=== PATIENT | female | born 1945 | race Two or more races ===

== ENCOUNTER 2021-10-23 14:18 | Emergency (ER) | payer OTHER ==
[~2021-10-23] VITALS: Ht 162.6 cm; Wt 56.7 kg
[~2021-10-23 14:18] MED LIST: ATIVAN0.5 MG; CLONAZEPAM0.125 MG/T; CYANOCOBALAMIN5 GM; DICLOFENAC POTA50 MG PO; INTESTINEX680 MG PO; NUVESSA5 GM; PNEU16DI2; PREDNISONE 5 MG; PREGNENOLONE1 GM; PROTONIX40 MG; SINVASTATIN 20MG; SYNTHROID125 MCG; SYNTHROID50 MCG; ZANTAC300 MG PO; ZITHROMAX200 MG PO
[2021-10-23] MEDS ORDERED: SYNTHROID112 MCG PO (14:39)
[2021-10-23] MEDS ORDERED: SIMVASTATIN5 MG (14:40)
[2021-10-23] MEDS ORDERED: RAYOS5 MG PO (14:40)
[2021-10-23] MEDS ORDERED: ORENCIA 250 MG250 MG IV (14:44)
== END 2021-10-23 20:22 | disposition home or self-care (01) ==
LOC: ER 14:18
DX: M54.89 Other dorsalgia (principal); R06.02 Shortness of breath

== ENCOUNTER 2022-05-23 06:16 | Day surgery (SDC) | payer OTHER ==
[~2022-05-23 06:16] MED LIST changes: +ORENCIA 250 MG250 MG IV; +RAYOS5 MG PO; +SIMVASTATIN5 MG; +SYNTHROID112 MCG PO
== END 2022-05-23 10:30 | disposition home or self-care (01) ==
LOC: AMB-ENDOS 06:16
PROVIDERS: ATTEND Surgery
DX: D12.5 Benign neoplasm of sigmoid colon (principal); Z20.822 Contact with and (suspected) exposure to COVID-19; K64.8 Other hemorrhoids; M06.8A Other specified rheumatoid arthritis, other specified site; E03.9 Hypothyroidism, unspecified

== ENCOUNTER 2023-07-02 11:07 | Outpatient (CLI) | payer OTHER | END 2023-07-02 11:15 | disposition home or self-care (01) | LOC: NUCLEAR 11:07 | PROVIDERS: ATTEND Internal Medicine | DX: I87.2 Venous insufficiency (chronic) (peripheral) (principal); I73.9 Peripheral vascular disease, unspecified ==

== ENCOUNTER → 2023-07-08 | Outpatient (CLI) | payer OTHER | END | disposition home or self-care (01) | LOC: NUCLEAR 08:00 | PROVIDERS: ATTEND Internal Medicine | DX: R07.9 Chest pain, unspecified (principal); Q21.10 Atrial septal defect, unspecified; E78.2 Mixed hyperlipidemia ==

== ENCOUNTER 2024-05-30 17:00 | Emergency (ER) | payer OTHER ==
[~2024-05-30] VITALS: Ht 162.6 cm; Wt 56.2 kg
[2024-05-30] MEDS ORDERED: NEURONTIN600 M1 (17:14)
[2024-05-30] MEDS ORDERED: KETOROLAC TROMETHAMINE 30 MG VIAL ONE (18:39)
[2024-05-30] MEDS ORDERED: ORPHENADRINE CITRATE 30 MG/ML AMPUL ONE (18:40)
[2024-05-30] MEDS ORDERED: ORPHENADRINE CITRATE 30 MG/ML AMPUL IM ONE (18:45)
[2024-05-30] MEDS ORDERED: KETOROLAC TROMETHAMINE 15 MG VIAL IM ONE (18:45)
[2024-05-30] MEDS ORDERED: ZANAFLEX4 MG PO (21:31)
[2024-05-30] MEDS ORDERED: TRAMADOL HCL 50 MG TABLET PO ONE (21:45)
== END 2024-05-30 21:53 ==
LOC: ER 17:01
DX: M46.1 Sacroiliitis, not elsewhere classified (principal); M51.36 Other intervertebral disc degeneration, lumbar region; M85.88 Other specified disorders of bone density and structure, other site; Z91.040 Latex allergy status; Z88.2 Allergy status to sulfonamides; Z85.038 Personal history of other malignant neoplasm of large intestine; E03.9 Hypothyroidism, unspecified
CPT/HCPCS: 72100; 73521; 96372; 99283; J1885; J2360